=== PATIENT | male | born 2000 ===

== ENCOUNTER 2024-10-30 13:50 | Inpatient (IN) | payer OTHER, SELFPAY ==
--- NOTE | 2024-10-30 14:46 | HO.PM.IMCN ---
History of Present Illness Data of Consult Service Date: 10/30/24 Primary Care Provider: Unknown Physician HPI Reason for consult: Medical H&P 24-year-old male with no significant past medical history or surgical history was brought to [facility] via EMS after his mother called due to suicidal ideation. His CBC, BMP, and UA C&S were all within normal limits. Patient has no medical concerns. On exam he is alert, cooperative, saying a couple of nonsensical answers at times. Denies any shortness of breath, chest pain, dizziness lightheadedness concerning symptoms. Reports that his lower back hurts for about 2 days after he played some basketball. Denies any numbness or tingling, paresthesias or difficulty with his bowel and bladder. Gait is steady. Review of Systems Review of Systems: Denies any shortness of breath, chest pain, dizziness, lightheadedness, abdominal pain or discomfort, nausea vomiting or diarrhea PMFSH Social History Advance Directives: No Advance Directives Information Provided: Yes Advance Directives on File: No Meds Allergies Allergy/AdvReac Type Severity Reaction Status Date / Time No Known Allergies Allergy Verified 10/30/24 14:01 Active Medications: Current Medications Acetaminophen (Acetaminophen 325 Mg Tablet) 650 mg PO Q6H PRN PRN Reason: Headache/Pain, Scale 1-10 Al Hydroxide/Mg Hydroxide (Magnesium Hydrox/Alum Hydrox 30 Ml Oral.Susp) 30 ml PO Q6H PRN PRN Reason: Heartburn/Nausea Hydroxyzine HCl (Hydroxyzine Hcl 25 Mg Tablet) 25 mg PO Q6H PRN PRN Reason: mild anxiety Magnesium Hydroxide (Milk Of Magnesia 30 Ml Oral.Susp) 30 ml PO DAILY PRN PRN Reason: Constipation Nicotine Polacrilex (Nicotine Polacrilex 2 Mg Gum) 4 mg BUCCAL Q2H PRN PRN Reason: Nicotine Cravings Trazodone HCl (Trazodone Hcl 50 Mg Tablet) 50 mg PO BEDTIME MRX1 PRN PRN Reason: Insomnia Physical Exam Vital Signs and Narrative: Alert and oriented X3, able to give good history. Neuro: CN II-X11 intact, no deficits, visual acuity intact EYES: PERRLA, EOM intact ENT: Hearing intact, lips moist Cardiac: S1 S2 RRR, No ectopy Pulmonary: lungs clear to auscultation, No increased WOB. Abdominal: BS active in all 4 quadrants, no guarding or tenderness MSK: Strength 5/5 upper and lower extremities : Deferred Extremities: No edema in lower extremities. Psych: Mood stable, Quiet and cooperative. Skin: Warm and dry, Intact Assessment and Plan (1) Suicidal ideation: Status: Acute Plan Unknown psychosis/suicidal ideation Plan per Psychiatry team Thank you for allowing me to participate in the care of this patient. Signing off at this time. Please reconsult of any acute concerns or issues arise
--- NOTE | 2024-10-30 16:02 | P.HPPS_ITS ---
HPI Date of Service: 10/30/24 Chief Complaint: mental health crisis HPI Narrative: per crisis eval, pt was at home and expressed SI to his mother, then apparently became very disorganized and difficult to understand. she called 911, and he was brought to the ED. once in the ED he denied SI but continued to present as very disorganized. he was medically cleared and referred for psychiatric admission. utox was cannabis POS only. on mental health unit at [facility], pt continues very disorganized. pleasant, able to answer very concrete questions linearly often, but largely tangential responses. agreeable to continue/restart his medications. reports taking wellbutrin, adderall, and seroquel. 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 states he has income from [facility] as well. lives with his mother. Substance History: tobacco - denies cannabis - smokes and uses CBD oil alcohol - denies cocaine - denies opioids - denies benzos - denies stimulants - h/o adderall, ritalin Rx Trauma History: denies Meds/Allergies Allergies Allergies Allergy/AdvReac Type Severity Reaction Status Date / Time No Known Allergies Allergy Verified 10/30/24 14:01 Mental Status Exam Mental Status Exam Narrative: adequately dressed and groomed. cooperative. no PMA/PMR. speech nml rate, incr amount, nml loudness, decr latency. thoughts tangential, for themost part. affect full range, normo-intense, non-labile. mood purple. denies SI/SIBI/HI/AVH. Assessment & Plan Assessment & Plan (1) Psychosis: Status: Acute Code(s): F29 - Unspecified psychosis not due to a substance or known physiological condition Plan hold wellbutrin and adderall. increase seroquel to 150 mg QHS (from 100 mg QHS). Patient educated on: medication risk/benefits and substance abuse Reason for continued inpatient stay Substantial Risk for: harm to self and inability to function Statement Statement: I have reviewed the history and physical and performed a pertinent examination on my patient. No changes have occurred unless specified. If the History and Physical was not performed prior to admission, the Hospitalist's service will be consulted for completing the admission p hysical. Time Spent With Patient Time: Total time managing care of this patient today __55__ minutes.
--- NOTE | 2024-10-30 17:28 | PC.ADMIT ---
Gui Harmon, 24 y/o Prydeinig speaking, was admitted to at 1405 from [facility].? Pt signed CV on admission for bipolar disorder with SI.? Leading up to admission, pt?s mother reported that her son was indulging in SI and ?was not making any sense.?? Pt is alert and oriented x3 and is cooperative and pleasant with staff.? Mood is expansive with a congruent affect.? Pt denies AVH and tactile hallucinations.? Pt thought process and speech is tangential and disorganized. Pt stated midway though admission when asked if he had someone he wanted to talk to if he was restrained pt responded with ?Matteo Felipe does not like having people sweat on him.? Pt is a poor historian, giving nonsensical responses to questions. Pt is appropriate and pleasant when conversing.? PT denies paranoia and delusions.? Pt denies SI/HI.? Pt reports that ?I want to eat less,? but does not appear to affect appetite.? Pt believes he has lost weight, but after being measured he is ?in my usual weight range.? Pt states that he gets enough sleep and has little difficulty with falling asleep. Pt needed to be redirected and needed to have questions repeated.? Pt endorses smoking marijuana frequently and drinking socially while only having a few drinks a month, last date of use unknown. Pt denies taking other substances.? Tox screen came back positive for marijuana.? Pt denies any acute medical issues or physical complaints. Pt is on 15 min safety checks.?
[2024-10-30 17:39] VITALS: BP 120/76; PULSE 56; RESP 16; TEMP 36.6; O2SAT 97
[2024-10-30 17:40] VITALS: BMI 23.1
[2024-10-30 20:00] VITALS: BP 149/73; PULSE 60; RESP 14; TEMP 36.9; O2SAT 99
[2024-10-31 07:41] LABS: MANUAL DIFF FLAG NO
[2024-10-31 07:54] LABS: Hematocrit 50.8 % (42.0-52.0); Hemoglobin 17.6 g/dl (14.0-18.0); Imm Gran Abs Auto 0.03 X10*3/uL (0.00-0.03); Imm Gran Pct Auto 0.5 % (0.0-0.4); Lymphocytes Absolute Auto 2.6 X10*3/uL (1.2-4.9); Mean Corpuscular HGB Conc 34.6 g/dl (31.0-36.0); Mean Corpuscular Hemoglobin 30.4 pg (27.0-33.0); Mean Corpuscular Volume 87.9 fL (80.0-98.0); NRBC Abs Auto 0.000 X10*3/uL (0.0-0.012); NRBC Pct Auto 0.0 /100WBC (0.0-0.2); Platelet Count 277 X10*3/uL (160-400); Red Blood Count 5.78 X10*6/uL (4.60-5.80); White Blood Count 6.1 X10*3/uL (4.8-10.8)
[2024-10-31 07:55] VITALS: BP 115/65; PULSE 45; TEMP 35.7; O2SAT 99
[2024-10-31 07:56] LABS: Hemoglobin A1C 132.6953 umol/L; Total Hemoglobin (HGBA1C) 4493.3237 umol/L
[2024-10-31 08:04] LABS: Alanine Aminotransferase 22 U/L (0-40); Albumin Level 4.8 g/dL (3.5-5.0); Alkaline Phosphatase 94 U/L (39-117); Aspartate Amino Transferase 26 U/L (5-37); Cholesterol 190 mg/dL (<200); HDL Cholesterol 47 mg/dL (>40); Total Protein 7.9 g/dL (6.5-8.0); Triglycerides 61 mg/dL (<150)
[2024-10-31 08:20] LABS: Free T4 (Free Thyroxine) 0.96 ng/dL (0.71-1.85); Thyroid Stimulating Hormone 2.16 uIU/mL (0.32-4.0)
[2024-10-31 08:33] LABS: Folate 11.3 ng/mL (> or = 4.0); Vitamin B12 818 pg/mL (200-900)
--- NOTE | 2024-10-31 16:08 | P.PNPSI_ITS ---
Subjective Subjective Date of Service: 10/31/24 Reason For Visit: mental health crisis Interim History: calm, cooperative, pleasant. disorganized, non-sequiturs. sometimes intelligible. slept OK, mood OK. no questions or complaints. per staff, taking meds, slept 7 hours. no behavioral issues. Mental Status Exam Mental Status Exam Narrative: adequately dressed and groomed. cooperative. no PMA/PMR. speech nml rate, nml amount, nml loudness, decr latency. thoughts tangential or non-sequiturs, for the most part. affect full range, normo-intense, non-labile. mood euthymic. no SI/SIBI/HI/AVH expressed. Diagnostics Vital Signs (24Hr): Vital Signs - 24 hr 10/30/24 17:39 10/30/24 20:00 10/31/24 07:55 Temperature 97.8 F 98.4 F 96.2 F L Pulse Rate 56 60 45 L Respiratory Rate 16 14 Blood Pressure 120/76 149/73 H 115/65 Pulse Oximetry 97 99 99 Oxygen Delivery Method Room Air Room Air Room Air BMI result Body Mass Index 23.1 Labs 10/31/24 07:32 Labs: Laboratory Results - last 48 hr 10/31/24 07:32 WBC 6.1 RBC 5.78 Hgb 17.6 Hct 50.8 MCV 87.9 MCH 30.4 MCHC 34.6 RDW 12.8 Plt Count 277 MPV 8.8 L Immature Gran % (Auto) 0.5 H Neut % (Auto) 42.7 L Lymph % (Auto) 41.9 H [place] % (Auto) 11.9 H Eos % (Auto) 2.0 Baso % (Auto) 1.0 Lymph # (Auto) 2.6 [place] # (Auto) 0.7 Eos # (Auto) 0.1 Baso # (Auto) 0.1 Abs Immat Gran (auto) 0.03 Absolute Neuts (auto) 2.6 Absolute Nucleated RBC 0.000 Nucleated RBC % (auto) 0.0 Estimat Average Glucose 94 Hemoglobin A1c % 4.9 Total Bilirubin 0.8 Direct Bilirubin 0.3 AST 26 ALT 22 Alkaline Phosphatase 94 Total Protein 7.9 Albumin 4.8 Triglycerides 61 Cholesterol 190 LDL Cholesterol, Calc 131 H HDL Cholesterol 47 Vitamin B12 818 Folate 11.3 TSH 2.16 Free T4 0.96 Medications Medications Current Medications Acetaminophen (Acetaminophen 325 Mg Tablet) 650 mg PO Q6H PRN PRN Reason: Headache/Pain, Scale 1-10 Al Hydroxide/Mg Hydroxide (Magnesium Hydrox/Alum Hydrox 30 Ml Oral.Susp) 30 ml PO Q6H PRN PRN Reason: Heartburn/Nausea Hydroxyzine HCl (Hydroxyzine Hcl 25 Mg Tablet) 25 mg PO Q6H PRN PRN Reason: mild anxiety Magnesium Hydroxide (Milk Of Magnesia 30 Ml Oral.Susp) 30 ml PO DAILY PRN PRN Reason: Constipation Nicotine Polacrilex (Nicotine Polacrilex 2 Mg Gum) 4 mg BUCCAL Q2H PRN PRN Reason: Nicotine Cravings Quetiapine Fumarate (Quetiapine Fumarate 50 Mg Tablet) 150 mg PO BEDTIME [facility]I Last Admin: 10/30/24 20:45 Dose: 150 mg Trazodone HCl (Trazodone Hcl 50 Mg Tablet) 50 mg PO BEDTIME MRX1 PRN PRN Reason: Insomnia Allergies Allergies Allergy/AdvReac Type Severity Reaction Status Date / Time No Known Allergies Allergy Verified 10/30/24 14:01 Assessment & Plan Assessment & Plan (1) Psychosis: Status: Acute Code(s): F29 - Unspecified psychosis not due to a substance or known physiological condition Plan 10/30: hold wellbutrin and adderall. increase seroquel to 150 mg QHS (from 100 mg QHS). 10/31: as for yesterday. slept well overnight. T/C adding mood stabilizer if pt does not improve soon. Reason for continued inpatient stay Substantial Risk for: harm to self and inability to function Time Spent With Patient Time: Total time managing care of this patient today ____ minutes.
[2024-10-31 19:25] VITALS: BP 128/78; PULSE 59; RESP 16; TEMP 36.3; O2SAT 98
[2024-11-01 08:00] VITALS: BP 123/67; PULSE 50; RESP 14; TEMP 36.6; O2SAT 99
--- NOTE | 2024-11-01 14:25 | HO.PSYCHPN ---
Subjective Subjective Date of Service: 11/01/24 Reason For Visit: mental health crisis Interim History: calm, cooperative. still disorganized and vague/bizarre in attempting to express himself. states medications working fine. seems to decline to consider mood stabilizer/bipolar Dx. per staff, denies Sx. visible, eating, disorganized. slept 8-brandan hours. Mental Status Exam Mental Status Exam Narrative: adequately dressed and groomed. cooperative. no PMA/PMR. speech nml rate, nml amount, nml loudness, decr latency. thoughts tangential or non-sequiturs, for the most part. affect full range, normo-intense, non-labile. mood euthymic. no SI/SIBI/HI/AVH expressed. Diagnostics Vital Signs (24Hr): Vital Signs - 24 hr 10/31/24 19:25 11/01/24 08:00 Temperature 97.4 F 97.9 F Pulse Rate 59 50 Respiratory Rate 16 14 Blood Pressure 128/78 123/67 Pulse Oximetry 98 99 Oxygen Delivery Method Room Air Room Air BMI result Body Mass Index 23.1 Labs 10/31/24 07:32 Labs: Laboratory Results - last 48 hr 10/31/24 07:32 WBC 6.1 RBC 5.78 Hgb 17.6 Hct 50.8 MCV 87.9 MCH 30.4 MCHC 34.6 RDW 12.8 Plt Count 277 MPV 8.8 L Immature Gran % (Auto) 0.5 H Neut % (Auto) 42.7 L Lymph % (Auto) 41.9 H [place] % (Auto) 11.9 H Eos % (Auto) 2.0 Baso % (Auto) 1.0 Lymph # (Auto) 2.6 [place] # (Auto) 0.7 Eos # (Auto) 0.1 Baso # (Auto) 0.1 Abs Immat Gran (auto) 0.03 Absolute Neuts (auto) 2.6 Absolute Nucleated RBC 0.000 Nucleated RBC % (auto) 0.0 Estimat Average Glucose 94 Hemoglobin A1c % 4.9 Total Bilirubin 0.8 Direct Bilirubin 0.3 AST 26 ALT 22 Alkaline Phosphatase 94 Total Protein 7.9 Albumin 4.8 Triglycerides 61 Cholesterol 190 LDL Cholesterol, Calc 131 H HDL Cholesterol 47 Vitamin B12 818 Folate 11.3 TSH 2.16 Free T4 0.96 Medications Medications Current Medications Acetaminophen (Acetaminophen 325 Mg Tablet) 650 mg PO Q6H PRN PRN Reason: Headache/Pain, Scale 1-10 Al Hydroxide/Mg Hydroxide (Magnesium Hydrox/Alum Hydrox 30 Ml Oral.Susp) 30 ml PO Q6H PRN PRN Reason: Heartburn/Nausea Hydroxyzine HCl (Hydroxyzine Hcl 25 Mg Tablet) 25 mg PO Q6H PRN PRN Reason: mild anxiety Magnesium Hydroxide (Milk Of Magnesia 30 Ml Oral.Susp) 30 ml PO DAILY PRN PRN Reason: Constipation Nicotine Polacrilex (Nicotine Polacrilex 2 Mg Gum) 4 mg BUCCAL Q2H PRN PRN Reason: Nicotine Cravings Quetiapine Fumarate (Quetiapine Fumarate 50 Mg Tablet) 150 mg PO BEDTIME [facility]I Last Admin: 10/31/24 20:36 Dose: 150 mg Trazodone HCl (Trazodone Hcl 50 Mg Tablet) 50 mg PO BEDTIME MRX1 PRN PRN Reason: Insomnia Allergies Allergies Allergy/AdvReac Type Severity Reaction Status Date / Time No Known Allergies Allergy Verified 10/30/24 14:01 Assessment & Plan Assessment & Plan (1) Psychosis: Status: Acute Code(s): F29 - Unspecified psychosis not due to a substance or known physiological condition Plan 10/30: hold wellbutrin and adderall. increase seroquel to 150 mg QHS (from 100 mg QHS). 10/31: as for yesterday. slept well overnight. T/C adding mood stabilizer if pt does not improve soon. 11/01: no change in presentation. declining to consider mood stabilizer. Reason for continued inpatient stay Substantial Risk for: inability to function Time Spent With Patient Time: Total time managing care of this patient today ____ minutes.
[2024-11-01 19:07] VITALS: BP 134/76; PULSE 68; RESP 18; TEMP 36.3; O2SAT 98
[2024-11-02 08:00] VITALS: BP 110/57; PULSE 55; RESP 14; TEMP 36.9; O2SAT 98
--- NOTE | 2024-11-02 14:50 | P.PNPSI_ITS ---
Subjective Subjective Date of Service: 11/02/24 Reason For Visit: mental health crisis Interim History: calm. more organized, but not well. declines new or more medication. MD insists on offering. per staff, taking meals. disorganized, delusional. pleasant, self-dialoguing. slept 8 hours. Mental Status Exam Mental Status Exam Narrative: adequately dressed and groomed. cooperative. no PMA/PMR. speech nml rate, nml amount, nml loudness, decr latency. thoughts disorganized, tangential or non- sequiturs, more than 50% of the time. affect full range, normo-intense, non- labile. mood euthymic. no SI/SIBI/HI/AVH expressed. Diagnostics Vital Signs (24Hr): Vital Signs - 24 hr 11/01/24 19:07 11/02/24 08:00 Temperature 97.4 F 98.4 F Pulse Rate 68 55 Respiratory Rate 18 14 Blood Pressure 134/76 110/57 L Pulse Oximetry 98 98 Oxygen Delivery Method Room Air Room Air BMI result Body Mass Index 23.1 Labs 10/31/24 07:32 Medications Medications Current Medications Acetaminophen (Acetaminophen 325 Mg Tablet) 650 mg PO Q6H PRN PRN Reason: Headache/Pain, Scale 1-10 Al Hydroxide/Mg Hydroxide (Magnesium Hydrox/Alum Hydrox 30 Ml Oral.Susp) 30 ml PO Q6H PRN PRN Reason: Heartburn/Nausea Hydroxyzine HCl (Hydroxyzine Hcl 25 Mg Tablet) 25 mg PO Q6H PRN PRN Reason: mild anxiety [place] Carbonate ([place] Carbonate Er 450 Mg Tablet.Er) 450 mg PO BID [facility] Magnesium Hydroxide (Milk Of Magnesia 30 Ml Oral.Susp) 30 ml PO DAILY PRN PRN Reason: Constipation Nicotine Polacrilex (Nicotine Polacrilex 2 Mg Gum) 4 mg BUCCAL Q2H PRN PRN Reason: Nicotine Cravings Quetiapine Fumarate (Quetiapine Fumarate 50 Mg Tablet) 150 mg PO BEDTIME [facility] Last Admin: 11/01/24 22:30 Dose: 150 mg Trazodone HCl (Trazodone Hcl 50 Mg Tablet) 50 mg PO BEDTIME MRX1 PRN PRN Reason: Insomnia Allergies Allergies Allergy/AdvReac Type Severity Reaction Status Date / Time No Known Allergies Allergy Verified 10/30/24 14:01 Assessment & Plan Assessment & Plan (1) Psychosis: Status: Acute Code(s): F29 - Unspecified psychosis not due to a substance or known physiological condition Plan 10/30: hold wellbutrin and adderall. increase seroquel to 150 mg QHS (from 100 mg QHS). 10/31: as for yesterday. slept well overnight. T/C adding mood stabilizer if pt does not improve soon. 11/01: no change in presentation. declining to consider mood stabilizer. 11/02: slight improvement in [facility] organization. pt declining change in mgmt, but offer lithium 450 BID. Reason for continued inpatient stay Substantial Risk for: harm to self and inability to function Time Spent With Patient Time: Total time managing care of this patient today ____ minutes.
[2024-11-02 20:00] VITALS: BP 131/73; PULSE 73; RESP 16; TEMP 36.5; O2SAT 97
--- NOTE | 2024-11-03 13:09 | P.PNPSI_ITS ---
Subjective Subjective Date of Service: 11/03/24 Reason For Visit: mental health crisis Interim History: slightly more cogent today. per staff, started lithium last NOC. labile, irritable. slept 7 hours. Mental Status Exam Mental Status Exam Narrative: adequately dressed and groomed. cooperative. no PMA/PMR. speech nml rate, nml amount, nml loudness, decr latency. thoughts disorganized, tangential or non- sequiturs, 50% of the time. affect full range, normo-intense, non-labile. mood euthymic. no SI/SIBI/HI/AVH expressed. Diagnostics Vital Signs (24Hr): Vital Signs - 24 hr 11/02/24 20:00 Temperature 97.7 F Pulse Rate 73 Respiratory Rate 16 Blood Pressure 131/73 Pulse Oximetry 97 Oxygen Delivery Method Room Air BMI result Body Mass Index 23.1 Labs 10/31/24 07:32 Medications Medications Current Medications Acetaminophen (Acetaminophen 325 Mg Tablet) 650 mg PO Q6H PRN PRN Reason: Headache/Pain, Scale 1-10 Al Hydroxide/Mg Hydroxide (Magnesium Hydrox/Alum Hydrox 30 Ml Oral.Susp) 30 ml PO Q6H PRN PRN Reason: Heartburn/Nausea Hydroxyzine HCl (Hydroxyzine Hcl 25 Mg Tablet) 25 mg PO Q6H PRN PRN Reason: mild anxiety [place] Carbonate ([place] Carbonate Er 450 Mg Tablet.Er) 450 mg PO BID COUNT INCLUDES [facility] Last Admin: 11/03/24 08:36 Dose: 450 mg Magnesium Hydroxide (Milk Of Magnesia 30 Ml Oral.Susp) 30 ml PO DAILY PRN PRN Reason: Constipation Nicotine Polacrilex (Nicotine Polacrilex 2 Mg Gum) 4 mg BUCCAL Q2H PRN PRN Reason: Nicotine Cravings Quetiapine Fumarate (Quetiapine Fumarate 50 Mg Tablet) 150 mg PO BEDTIME [facility] Last Admin: 11/02/24 21:06 Dose: 150 mg Trazodone HCl (Trazodone Hcl 50 Mg Tablet) 50 mg PO BEDTIME MRX1 PRN PRN Reason: Insomnia Last Admin: 11/02/24 22:58 Dose: 50 mg Allergies Allergies Allergy/AdvReac Type Severity Reaction Status Date / Time No Known Allergies Allergy Verified 10/30/24 14:01 Assessment & Plan Assessment & Plan (1) Psychosis: Status: Acute Code(s): F29 - Unspecified psychosis not due to a substance or known physiological condition Plan 10/30: hold wellbutrin and adderall. increase seroquel to 150 mg QHS (from 100 mg QHS). 10/31: as for yesterday. slept well overnight. T/C adding mood stabilizer if pt does not improve soon. 11/01: no change in presentation. declining to consider mood stabilizer. 11/02: slight improvement in [facility] organization. pt declining change in mgmt, but offer lithium 450 BID. 11/03: slightly more cogent and germane today. spoke with pt's mother re case; she feels adderall and seroquel worked well for him, when he was taking them. continue current mgmt. Reason for continued inpatient stay Substantial Risk for: harm to self and inability to function Time Spent With Patient Time: Total time managing care of this patient today __35__ minutes.
[2024-11-03 20:00] VITALS: BP 126/60; PULSE 63; RESP 16; TEMP 36.1; O2SAT 99
[2024-11-04 07:35] VITALS: BP 120/61; PULSE 56; RESP 14; TEMP 36.2; O2SAT 99
--- NOTE | 2024-11-04 15:08 | P.PNPSI_ITS ---
Subjective Subjective Date of Service: 11/04/24 Reason For Visit: mental health crisis Interim History: brief but linear responses to staff air tactical officer on their attempted interview. pt c/o feeling tired. declined interview with this senior underwriter for that reason. per staff, +dep/anx. denies AVH. +RIS. +ADLs. eating well. pacing, mumbling. c/o AH eves. just chillin. slept 8 hours. Mental Status Exam Mental Status Exam Narrative: adequately dressed and groomed. cooperative. no PMA/PMR. speech nml rate, decr amount, nml loudness, nml latency. thoughts linear today, but very little content. affect constricted, normo-intense, non-labile. mood not assessed. no SI/SIBI/HI/AVH expressed. Diagnostics Vital Signs (24Hr): Vital Signs - 24 hr 11/03/24 20:00 11/04/24 07:35 Temperature 97.0 F 97.2 F Pulse Rate 63 56 Respiratory Rate 16 14 Blood Pressure 126/60 120/61 Pulse Oximetry 99 99 Oxygen Delivery Method Room Air Room Air BMI result Body Mass Index 23.1 Labs 10/31/24 07:32 Medications Medications Current Medications Acetaminophen (Acetaminophen 325 Mg Tablet) 650 mg PO Q6H PRN PRN Reason: Headache/Pain, Scale 1-10 Al Hydroxide/Mg Hydroxide (Magnesium Hydrox/Alum Hydrox 30 Ml Oral.Susp) 30 ml PO Q6H PRN PRN Reason: Heartburn/Nausea Hydroxyzine HCl (Hydroxyzine Hcl 25 Mg Tablet) 25 mg PO Q6H PRN PRN Reason: mild anxiety [place] Carbonate ([place] Carbonate Er 450 Mg Tablet.Er) 450 mg PO BID [facility] Last Admin: 11/04/24 08:39 Dose: 450 mg Magnesium Hydroxide (Milk Of Magnesia 30 Ml Oral.Susp) 30 ml PO DAILY PRN PRN Reason: Constipation Nicotine Polacrilex (Nicotine Polacrilex 2 Mg Gum) 4 mg BUCCAL Q2H PRN PRN Reason: Nicotine Cravings Quetiapine Fumarate (Quetiapine Fumarate 50 Mg Tablet) 150 mg PO BEDTIME [facility] Last Admin: 11/03/24 21:23 Dose: 150 mg Trazodone HCl (Trazodone Hcl 50 Mg Tablet) 50 mg PO BEDTIME MRX1 PRN PRN Reason: Insomnia Last Admin: 11/02/24 22:58 Dose: 50 mg Allergies Allergies Allergy/AdvReac Type Severity Reaction Status Date / Time No Known Allergies Allergy Verified 10/30/24 14:01 Assessment & Plan Assessment & Plan (1) Psychosis: Status: Acute Code(s): F29 - Unspecified psychosis not due to a substance or known physiological condition Plan 10/30: hold wellbutrin and adderall. increase seroquel to 150 mg QHS (from 100 mg QHS). 10/31: as for yesterday. slept well overnight. T/C adding mood stabilizer if pt does not improve soon. 11/01: no change in presentation. declining to consider mood stabilizer. 11/02: [facility] pt declining change in mgmt, but offer lithium 450 BID. 11/03: slightly more cogent and germane today. spoke with pt's mother re case; she feels adderall and seroquel worked well for him, when he was taking them. continue current mgmt. 11/04: answers brief but linear in limited observation. declined interview with MD, citing feeling tired. increase lithium to 600 BID. Reason for continued inpatient stay Substantial Risk for: harm to self and inability to function Time Spent With Patient Time: Total time managing care of this patient today ____ minutes.
[2024-11-04 20:00] VITALS: BP 132/87; PULSE 65; RESP 16; TEMP 36; O2SAT 97
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
--- NOTE | 2024-11-05 09:20 | HO.PSYCHPN ---
Subjective Subjective Date of Service: 11/05/24 Reason For Visit: mental health crisis Subjective Notes: Conditional Voluntary Medical Problems Affecting Mental Status: No Interim History: Patient notes that he is feeling ?great. He notes that he is missing his family and to be with them. He also want to return home and resume work. He denies anxiety or depression. He denies SI/HI/AH/VH. Medication Compliance: Yes Side effects from medications: No Attending Groups: Intermittent Review of Systems Acute medical concerns: No Mental Status Exam Mental Status Exam Narrative: Appearance: Casually dressed, adequate hygiene Behavior: Calm and cooperative throughout the interview. Eye contact is appropriate, and there are no signs of psychomotor agitation or retardation Speech: Normal volume and prosody Thought process: logical and goal-directed Thought content: Future oriented no self-harming thoughts Mood: Great Affect: Full, mood-congruent SI:denies HI:denies VH/AH:none Delusions: None Insight/judgment: Fair insight and judgment Memory/cog: Alert, oriented x 4. grossly intact to conversational testing Diagnostics Vital Signs (24Hr): Vital Signs - 24 hr 11/04/24 20:00 Temperature 96.8 F Pulse Rate 65 Respiratory Rate 16 Blood Pressure 132/87 Pulse Oximetry 97 Oxygen Delivery Method Room Air BMI result Body Mass Index 23.1 Labs 10/31/24 07:32 Medications Medications Current Medications Acetaminophen (Acetaminophen 325 Mg Tablet) 650 mg PO Q6H PRN PRN Reason: Headache/Pain, Scale 1-10 Al Hydroxide/Mg Hydroxide (Magnesium Hydrox/Alum Hydrox 30 Ml Oral.Susp) 30 ml PO Q6H PRN PRN Reason: Heartburn/Nausea Hydroxyzine HCl (Hydroxyzine Hcl 25 Mg Tablet) 25 mg PO Q6H PRN PRN Reason: mild anxiety [place] Carbonate ([place] Carbonate Er 300 Mg Tablet.Er) 600 mg PO BID [facility] Last Admin: 11/05/24 08:33 Dose: 600 mg Magnesium Hydroxide (Milk Of Magnesia 30 Ml Oral.Susp) 30 ml PO DAILY PRN PRN Reason: Constipation Nicotine Polacrilex (Nicotine Polacrilex 2 Mg Gum) 4 mg BUCCAL Q2H PRN PRN Reason: Nicotine Cravings Quetiapine Fumarate (Quetiapine Fumarate 50 Mg Tablet) 150 mg PO BEDTIME [facility] Last Admin: 11/04/24 22:22 Dose: 50 mg Trazodone HCl (Trazodone Hcl 50 Mg Tablet) 50 mg PO BEDTIME MRX1 PRN PRN Reason: Insomnia Last Admin: 11/02/24 22:58 Dose: 50 mg Allergies Allergies Allergy/AdvReac Type Severity Reaction Status Date / Time No Known Allergies Allergy Verified 10/30/24 14:01 Assessment & Plan Assessment & Plan (1) Psychosis: Status: Acute Code(s): F29 - Unspecified psychosis not due to a substance or known physiological condition Plan 10/30: hold wellbutrin and adderall. increase seroquel to 150 mg QHS (from 100 mg QHS). 10/31: as for yesterday. slept well overnight. T/C adding mood stabilizer if pt does not improve soon. 11/01: no change in presentation. declining to consider mood stabilizer. 11/02: slight improvement in [facility]. pt declining change in mgmt, but offer lithium 450 BID. 11/03: slightly more cogent and germane today. spoke with pt's mother re case; she feels adderall and seroquel worked well for him, when he was taking them. continue current mgmt. 11/04: answers brief but linear in limited observation. declined interview with MD, citing feeling tired. increase lithium to 600 BID. 11/05: Patient notes that he is feeling ?great. He notes that he is missing his family and to be with them. He also want to return home and resume work. He denies anxiety or depression. He denies SI/HI/AH/VH. Continue current treatment regimen. Patient educated on: therapeutic strategies Reason for continued inpatient stay Substantial Risk for: rapid decompensation Time Spent With Patient Time: Total time managing care of this patient today ____ minutes.
[2024-11-05 20:00] VITALS: BP 141/73; PULSE 65; RESP 16; TEMP 37.1; O2SAT 98
[2024-11-06 07:00] VITALS: BMI 24.0
[2024-11-06 08:00] VITALS: RESP 18
--- NOTE | 2024-11-06 17:01 | HO.PSYCHPN ---
Subjective Subjective Date of Service: 11/06/24 Reason For Visit: mental health crisis Interim History: feels lithium keeps my demeanor not chaotic. sleeping well. linear and reasonably logical today. per staff, taking meds. flat, withdrawn. +RIS. pacing, laughing. denies Sx. thought-disordered. sleeping well. Mental Status Exam Mental Status Exam Narrative: adequately dressed and groomed. cooperative. no PMA/PMR. speech nml rate, amount, loudness; decr latency. thoughts linear and reasonably logical. affect flexible, normo-intense, non-labile. mood less euphoric. no SI/SIBI/HI/AVH expressed. per staff, +RIS. Diagnostics Vital Signs (24Hr): Vital Signs - 24 hr 11/05/24 20:00 11/06/24 08:00 Temperature 98.8 F Pulse Rate 65 Respiratory Rate 16 18 Blood Pressure 141/73 H Pulse Oximetry 98 Oxygen Delivery Method Room Air BMI result Body Mass Index 24.0 Labs 10/31/24 07:32 Medications Medications Current Medications Acetaminophen (Acetaminophen 325 Mg Tablet) 650 mg PO Q6H PRN PRN Reason: Headache/Pain, Scale 1-10 Al Hydroxide/Mg Hydroxide (Magnesium Hydrox/Alum Hydrox 30 Ml Oral.Susp) 30 ml PO Q6H PRN PRN Reason: Heartburn/Nausea Hydroxyzine HCl (Hydroxyzine Hcl 25 Mg Tablet) 25 mg PO Q6H PRN PRN Reason: mild anxiety [place] Carbonate ([place] Carbonate Er 300 Mg Tablet.Er) 600 mg PO BID [facility] Last Admin: 11/06/24 08:41 Dose: 600 mg Magnesium Hydroxide (Milk Of Magnesia 30 Ml Oral.Susp) 30 ml PO DAILY PRN PRN Reason: Constipation Nicotine Polacrilex (Nicotine Polacrilex 2 Mg Gum) 4 mg BUCCAL Q2H PRN PRN Reason: Nicotine Cravings Quetiapine Fumarate (Quetiapine Fumarate 50 Mg Tablet) 150 mg PO BEDTIME [facility] Last Admin: 11/05/24 20:44 Dose: 150 mg Trazodone HCl (Trazodone Hcl 50 Mg Tablet) 50 mg PO BEDTIME MRX1 PRN PRN Reason: Insomnia Last Admin: 11/02/24 22:58 Dose: 50 mg Allergies Allergies Allergy/AdvReac Type Severity Reaction Status Date / Time No Known Allergies Allergy Verified 10/30/24 14:01 Assessment & Plan Assessment & Plan (1) Psychosis: Status: Acute Code(s): F29 - Unspecified psychosis not due to a substance or known physiological condition Plan 10/30: hold wellbutrin and adderall. increase seroquel to 150 mg QHS (from 100 mg QHS). 10/31: as for yesterday. slept well overnight. T/C adding mood stabilizer if pt does not improve soon. 11/01: no change in presentation. declining to consider mood stabilizer. 11/02: slight improvement in [facility] organization. pt declining change in mgmt, but offer lithium 450 BID. 11/03: slightly more cogent and germane today. spoke with pt's mother re case; she feels adderall and seroquel worked well for him, when he was taking them. continue current mgmt. 11/04: answers brief but linear in limited observation. declined interview with MD, citing feeling tired. increase lithium to 600 BID. 11/05: Patient notes that he is feeling ?great. He notes that he is missing his family and to be with them. He also want to return home and resume work. He denies anxiety or depression. He denies SI/HI/AH/VH. Continue current treatment regimen. 11/06: linear, able to communicate reasonably well and be understood. feels lithium keeps my demeanor not chaotic. sleeping well. continue current mgmt. Reason for continued inpatient stay Substantial Risk for: harm to self, inability to function and rapid decompensation Time Spent With Patient Time: Total time managing care of this patient today __25__ minutes.
[2024-11-06 19:55] VITALS: BP 124/73; PULSE 62; RESP 16; TEMP 37.1; O2SAT 99
[2024-11-07 07:25] VITALS: BP 92/55; PULSE 51; RESP 14; TEMP 37; O2SAT 98
--- NOTE | 2024-11-07 11:18 | P.PNPSI_ITS ---
Subjective Subjective Date of Service: 11/07/24 Reason For Visit: mental health crisis Interim History: in bed, tired, rousable. denies any problems, states he is extra sleepy this morning and just wants to go back to sleep. per staff denies dep/anx. taking meds. variable affect. slept 8 hours. Mental Status Exam Mental Status Exam Narrative: adequately dressed and groomed. cooperative. no PMA/PMR. speech nml rate, amount, loudness; decr latency. thoughts linear and logical. affect constricted, normo-intense, non-labile. mood not euphoric. no SI/SIBI/HI/AVH expressed. Diagnostics Vital Signs (24Hr): Vital Signs - 24 hr 11/06/24 19:55 11/07/24 07:25 Temperature 98.8 F 98.6 F Pulse Rate 62 51 Respiratory Rate 16 14 Blood Pressure 124/73 92/55 L Pulse Oximetry 99 98 Oxygen Delivery Method Room Air Room Air BMI result Body Mass Index 24.0 Labs 10/31/24 07:32 Medications Medications Current Medications Acetaminophen (Acetaminophen 325 Mg Tablet) 650 mg PO Q6H PRN PRN Reason: Headache/Pain, Scale 1-10 Al Hydroxide/Mg Hydroxide (Magnesium Hydrox/Alum Hydrox 30 Ml Oral.Susp) 30 ml PO Q6H PRN PRN Reason: Heartburn/Nausea Hydroxyzine HCl (Hydroxyzine Hcl 25 Mg Tablet) 25 mg PO Q6H PRN PRN Reason: mild anxiety [place] Carbonate ([place] Carbonate Er 300 Mg Tablet.Er) 600 mg PO BID [facility] Last Admin: 11/07/24 08:43 Dose: 600 mg Magnesium Hydroxide (Milk Of Magnesia 30 Ml Oral.Susp) 30 ml PO DAILY PRN PRN Reason: Constipation Nicotine Polacrilex (Nicotine Polacrilex 2 Mg Gum) 4 mg BUCCAL Q2H PRN PRN Reason: Nicotine Cravings Quetiapine Fumarate (Quetiapine Fumarate 50 Mg Tablet) 150 mg PO BEDTIME [facility] Last Admin: 11/06/24 21:23 Dose: 150 mg Trazodone HCl (Trazodone Hcl 50 Mg Tablet) 50 mg PO BEDTIME MRX1 PRN PRN Reason: Insomnia Last Admin: 11/06/24 21:23 Dose: 50 mg Allergies Allergies Allergy/AdvReac Type Severity Reaction Status Date / Time No Known Allergies Allergy Verified 10/30/24 14:01 Assessment & Plan Assessment & Plan (1) Psychosis: Status: Acute Code(s): F29 - Unspecified psychosis not due to a substance or known physiological condition Plan 10/30: hold wellbutrin and adderall. increase seroquel to 150 mg QHS (from 100 mg QHS). 10/31: as for yesterday. slept well overnight. T/C adding mood stabilizer if pt does not improve soon. 11/01: no change in presentation. declining to consider mood stabilizer. 11/02: slight improvement in [facility]. pt declining change in mgmt, but offer lithium 450 BID. 11/03: slightly more cogent and germane today. spoke with pt's mother re case; she feels adderall and seroquel worked well for him, when he was taking them. continue current mgmt. 11/04: answers brief but linear in limited observation. declined interview with MD, citing feeling tired. increase lithium to 600 BID. 11/05: Patient notes that he is feeling ?great. He notes that he is missing his family and to be with them. He also want to return home and resume work. He denies anxiety or depression. He denies SI/HI/AH/VH. Continue current treatment regimen. 11/06: linear, able to communicate reasonably well and be understood. feels lithium keeps my demeanor not chaotic. sleeping well. continue current mgmt. 11/07: remains improved, linear, non-bizarre in responses. continue current mgmt. check lithium level and associated labs sunday (ordered). Reason for continued inpatient stay Substantial Risk for: harm to self, inability to function and rapid decompensation Time Spent With Patient Time: Total time managing care of this patient today ____ minutes.
[2024-11-08 20:00] VITALS: BP 117/60; PULSE 67; RESP 16; TEMP 37; O2SAT 97
--- NOTE | 2024-11-08 22:45 | P.PNPSI_ITS ---
Subjective Subjective Date of Service: 11/08/24 Reason For Visit: mental health crisis Subjective Notes: Conditional Voluntary Healthcare Proxy: No Guardianship: No Medical Problems Affecting Mental Status: No Interim History: Medical record and nursing notes reviewed; case discussed during rounds with team/nursing staff, and met with patient for supportive therapy/psychoeducation, as well as medication management. Per chart review, patient slept well, no appetite issues, was medication compliant. Denies side effects. Denies hallucinations. Denies other safety concerns, visible at times in common area. No behavior issues Medication Compliance: Yes Side effects from medications: No Attending Groups: Intermittent Review of Systems Acute medical concerns: No Medical Review of Systems: unchanged Review of Systems Review of Systems Denies any shortness of breath, chest pain, dizziness, lightheadedness, abdominal pain or discomfort, nausea vomiting or diarrhea Yes all other systems are reviewed and are negative Mental Status Exam Mental Status Exam Narrative: adequately dressed and groomed. cooperative. no PMA/PMR. speech nml rate, amount, loudness; decr latency. thoughts linear and logical. affect constricted, normo-intense, non-labile. mood not euphoric. denies SI/SIB//HI/AVH. Diagnostics Vital Signs (24Hr): Vital Signs - 24 hr 11/08/24 20:00 Temperature 98.6 F Pulse Rate 67 Respiratory Rate 16 Blood Pressure 117/60 Pulse Oximetry 97 Oxygen Delivery Method Room Air BMI result Body Mass Index 24.0 Labs 10/31/24 07:32 Medications Medications Current Medications Acetaminophen (Acetaminophen 325 Mg Tablet) 650 mg PO Q6H PRN PRN Reason: Headache/Pain, Scale 1-10 Al Hydroxide/Mg Hydroxide (Magnesium Hydrox/Alum Hydrox 30 Ml Oral.Susp) 30 ml PO Q6H PRN PRN Reason: Heartburn/Nausea Hydroxyzine HCl (Hydroxyzine Hcl 25 Mg Tablet) 25 mg PO Q6H PRN PRN Reason: mild anxiety [place] Carbonate ([place] Carbonate Er 300 Mg Tablet.Er) 600 mg PO BID [facility] Last Admin: 11/08/24 22:15 Dose: 600 mg Magnesium Hydroxide (Milk Of Magnesia 30 Ml Oral.Susp) 30 ml PO DAILY PRN PRN Reason: Constipation Nicotine Polacrilex (Nicotine Polacrilex 2 Mg Gum) 4 mg BUCCAL Q2H PRN PRN Reason: Nicotine Cravings Quetiapine Fumarate (Quetiapine Fumarate 50 Mg Tablet) 150 mg PO BEDTIME [facility] Last Admin: 11/08/24 22:15 Dose: 150 mg Trazodone HCl (Trazodone Hcl 50 Mg Tablet) 50 mg PO BEDTIME MRX1 PRN PRN Reason: Insomnia Last Admin: 11/08/24 22:15 Dose: 50 mg Allergies Allergies Allergy/AdvReac Type Severity Reaction Status Date / Time No Known Allergies Allergy Verified 10/30/24 14:01 Assessment & Plan Assessment & Plan (1) Psychosis: Status: Acute Code(s): F29 - Unspecified psychosis not due to a substance or known physiological condition Plan 10/30: hold wellbutrin and adderall. increase seroquel to 150 mg QHS (from 100 mg QHS). 10/31: as for yesterday. slept well overnight. T/C adding mood stabilizer if pt does not improve soon. 11/01: no change in presentation. declining to consider mood stabilizer. 11/02: slight improvement in [facility] organization. pt declining change in mgmt, but offer lithium 450 BID. 11/03: slightly more cogent and germane today. spoke with pt's mother re case; she feels adderall and seroquel worked well for him, when he was taking them. continue current mgmt. 11/04: answers brief but linear in limited observation. declined interview with MD, citing feeling tired. increase lithium to 600 BID. 11/05: Patient notes that he is feeling ?great. He notes that he is missing his family and to be with them. He also want to return home and resume work. He denies anxiety or depression. He denies SI/HI/AH/VH. Continue current treatment regimen. 11/06: linear, able to communicate reasonably well and be understood. feels lithium keeps my demeanor not chaotic. sleeping well. continue current mgmt. 11/07: remains improved, linear, non-bizarre in responses. continue current mgmt. check lithium level and associated labs sunday (ordered). 11/08/24: Continue to improve in mood, no safety concerns. No behavior issues. Denies side effects and was medication compliant. No issue with sleep and appetite Patient educated on: medication risk/benefits and therapeutic strategies Informed Consent: understands Reason for continued inpatient stay Substantial Risk for: med/psych decompensation Time Spent With Patient Time: Total time managing care of this patient today ____ minutes.
--- NOTE | 2024-11-09 13:14 | HO.PSYCHPN ---
Subjective Subjective Date of Service: 11/09/24 Reason For Visit: mental health crisis Subjective Notes: Conditional Voluntary Healthcare Proxy: No Guardianship: No Medical Problems Affecting Mental Status: No Interim History: Medical record and nursing notes reviewed; case discussed during rounds with team/nursing staff, and met with patient for supportive therapy/psychoeducation, as well as medication management. Patient slept 7 hours, was medication compliant. Denies side effects. Continued to improve. No behavior issues. No safety concerns. He expect to be discharged on Sunday. Visible at times and attended to groups, Medication Compliance: Yes Side effects from medications: No Attending Groups: Intermittent Review of Systems Acute medical concerns: No Medical Review of Systems: unchanged Review of Systems Review of Systems Denies any shortness of breath, chest pain, dizziness, lightheadedness, abdominal pain or discomfort, nausea vomiting or diarrhea Yes all other systems are reviewed and are negative Mental Status Exam Mental Status Exam Narrative: adequately dressed and groomed. cooperative. no PMA/PMR. speech nml rate, amount, loudness; decr latency. thoughts linear and logical. affect constricted, normo-intense, non-labile. mood not euphoric. denies SI/SIB//HI/AVH. Diagnostics Vital Signs (24Hr): Vital Signs - 24 hr 11/08/24 20:00 Temperature 98.6 F Pulse Rate 67 Respiratory Rate 16 Blood Pressure 117/60 Pulse Oximetry 97 Oxygen Delivery Method Room Air BMI result Body Mass Index 24.0 Labs 10/31/24 07:32 Medications Medications Current Medications Acetaminophen (Acetaminophen 325 Mg Tablet) 650 mg PO Q6H PRN PRN Reason: Headache/Pain, Scale 1-10 Al Hydroxide/Mg Hydroxide (Magnesium Hydrox/Alum Hydrox 30 Ml Oral.Susp) 30 ml PO Q6H PRN PRN Reason: Heartburn/Nausea Hydroxyzine HCl (Hydroxyzine Hcl 25 Mg Tablet) 25 mg PO Q6H PRN PRN Reason: mild anxiety [place] Carbonate ([place] Carbonate Er 300 Mg Tablet.Er) 600 mg PO BID [facility] Last Admin: 11/09/24 08:29 Dose: 600 mg Magnesium Hydroxide (Milk Of Magnesia 30 Ml Oral.Susp) 30 ml PO DAILY PRN PRN Reason: Constipation Nicotine Polacrilex (Nicotine Polacrilex 2 Mg Gum) 4 mg BUCCAL Q2H PRN PRN Reason: Nicotine Cravings Quetiapine Fumarate (Quetiapine Fumarate 50 Mg Tablet) 150 mg PO BEDTIME [facility] Last Admin: 11/08/24 22:15 Dose: 150 mg Trazodone HCl (Trazodone Hcl 50 Mg Tablet) 50 mg PO BEDTIME MRX1 PRN PRN Reason: Insomnia Last Admin: 11/08/24 22:15 Dose: 50 mg Allergies Allergies Allergy/AdvReac Type Severity Reaction Status Date / Time No Known Allergies Allergy Verified 10/30/24 14:01 Assessment & Plan Assessment & Plan (1) Psychosis: Status: Acute Code(s): F29 - Unspecified psychosis not due to a substance or known physiological condition Plan 10/30: hold wellbutrin and adderall. increase seroquel to 150 mg QHS (from 100 mg QHS). 10/31: as for yesterday. slept well overnight. T/C adding mood stabilizer if pt does not improve soon. 11/01: no change in presentation. declining to consider mood stabilizer. 11/02: slight improvement in [facility] organization. pt declining change in mgmt, but offer lithium 450 BID. 11/03: slightly more cogent and germane today. spoke with pt's mother re case; she feels adderall and seroquel worked well for him, when he was taking them. continue current mgmt. 11/04: answers brief but linear in limited observation. declined interview with MD, citing feeling tired. increase lithium to 600 BID. 11/05: Patient notes that he is feeling ?great. He notes that he is missing his family and to be with them. He also want to return home and resume work. He denies anxiety or depression. He denies SI/HI/AH/VH. Continue current treatment regimen. 11/06: linear, able to communicate reasonably well and be understood. feels lithium keeps my demeanor not chaotic. sleeping well. continue current mgmt. 11/07: remains improved, linear, non-bizarre in responses. continue current mgmt. check lithium level and associated labs sunday morning (ordered). 11/08/24: Continue to improve in mood, no safety concerns. No behavior issues. Denies side effects and was medication compliant. No issue with sleep and appetite. 11/09/24: Sleep and appetite are good, compliant with medications with no side effects. No behavior safety concerns. Continued to improve. Visible at times and attended groups. Patient educated on: medication risk/benefits and therapeutic strategies Informed Consent: understands Reason for continued inpatient stay Substantial Risk for: med/psych decompensation Time Spent With Patient Time: Total time managing care of this patient today ____ minutes.
[2024-11-09 19:45] VITALS: BP 126/71; PULSE 58; TEMP 36.9; O2SAT 97
[2024-11-10 07:34] LABS: MANUAL DIFF FLAG NO
[2024-11-10 07:36] LABS: Hematocrit 49.9 % (42.0-52.0); Hemoglobin 16.6 g/dl (14.0-18.0); Imm Gran Abs Auto 0.05 X10*3/uL (0.00-0.03); Imm Gran Pct Auto 0.6 % (0.0-0.4); Lymphocytes Absolute Auto 2.2 X10*3/uL (1.2-4.9); Mean Corpuscular HGB Conc 33.3 g/dl (31.0-36.0); Mean Corpuscular Hemoglobin 30.4 pg (27.0-33.0); Mean Corpuscular Volume 91.4 fL (80.0-98.0); NRBC Abs Auto 0.000 X10*3/uL (0.0-0.012); NRBC Pct Auto 0.0 /100WBC (0.0-0.2); Platelet Count 265 X10*3/uL (160-400); Red Blood Count 5.46 X10*6/uL (4.60-5.80); White Blood Count 8.0 X10*3/uL (4.8-10.8)
[2024-11-10 07:48] LABS: Anion Gap 9 (12-20); Blood Urea Nitrogen 10 mg/dL (9-16); Calcium 9.1 mg/dL (8.4-10.2); Carbon Dioxide 31 mmol/L (22-29); Chloride 106 mmol/L (96-108); Creatinine Clr Calc Pharmacy 110.8; Estimated Glomerular Filt Rate > 60; Lithium 0.68 mmol/L (0.60-1.20); Potassium 4.5 mmol/L (3.3-5.1); Sodium 141 mmol/L (135-145)
[2024-11-10 08:00] VITALS: BP 134/58; PULSE 62; RESP 16; TEMP 36.8; O2SAT 100
--- NOTE | 2024-11-10 16:01 | P.DS_ITS ---
DS: Providers Provider Date of Service: 11/10/24 Date of admission: 10/30/24 13:50 Date of discharge: 11/11/24 Primary care physician: Unknown Physician Consults: 10/30/24 14:07 Consult to Hospitalist Routine Comment: [place] [facility] [place] For Exam: OSH admission DS: Diagnosis Discharge Diagnosis (1) Psychosis: Status: Acute DS: Medications Discharge Medications Home Medications: Previous Rx's ?Medication ?Instructions ?Recorded lithium carbonate 300 mg See Rx Instructions .Route 0 11/10/24 tablet,extended release .COMPLEX 30 days #90 tabs lithium carbonate 450 mg 450 mg PO BEDTIME 30 days #3 0 tabs 11/10/24 tablet,extended release quetiapine 50 mg tablet 150 mg (3 x 50 mg) PO BEDTIM E 30 11/10/24 days #90 tabs Mental Status Exam Mental Status Exam Narrative: adequately dressed and groomed. cooperative. no PMA/PMR. speech nml rate, incr amount, nml loudness, decr latency. thoughts linear and logical. affect constricted, normo-intense, non-labile. mood not euphoric. no SI/SIBI/HI/AVH. Data Data Completed and Pending Completed studies during hospitalization [Text1]: 11/10/24 07:21 WBC 8.0 RBC 5.46 Hgb 16.6 Hct 49.9 MCV 91.4 MCH 30.4 MCHC 33.3 RDW 12.7 Plt Count 265 MPV 8.9 L Immature Gran % (Auto) 0.6 H Neut % (Auto) 61.3 Lymph % (Auto) 27.0 [place] % (Auto) 8.1 Eos % (Auto) 1.9 Baso % (Auto) 1.1 Lymph # (Auto) 2.2 [place] # (Auto) 0.7 Eos # (Auto) 0.2 Baso # (Auto) 0.1 Abs Immat Gran (auto) 0.05 H Absolute Neuts (auto) 4.9 Absolute Nucleated RBC 0.000 Nucleated RBC % (auto) 0.0 Sodium 141 Potassium 4.5 Chloride 106 Carbon Dioxide 31 H Anion Gap 9 L BUN 10 Creatinine 1.07 Estim Creat Clear Calc 110.8 Estimated GFR > 60 Random Glucose 84 Calcium 9.1 [place] 0.68 DS: Summary Hospital Course Hospital Course: per 10/30 admission note: HPI Narrative: per crisis eval, pt was at home and expressed SI to his mother, then apparently became very disorganized and difficult to understand. she called 911, and he was brought to the ED. once in the ED he denied SI but continued to present as very disorganized. he was medically cleared and referred for psychiatric admission. utox was cannabis POS only. [place] [facility] [place] continues very disorganized. pleasant, able to answer very concrete questions linearly often, but largely tangential responses. agreeable to continue/restart his medications. reports taking wellbutrin, adderall, and seroquel. Past Psychiatric History: hosps: a million SA: denies SIB: denies outpt: [facility] [place] [facility] Evaluation Reviewed: Yes PMFSH Narrative: HTN Family History: denies Social History: HS grad. working in transportation and delivery. states he has income from [facility] as well. lives with his mother. Substance History: tobacco - denies cannabis - smokes and uses CBD oil alcohol - denies cocaine - denies opioids - denies benzos - denies stimulants - h/o adderall, ritalin Rx Trauma History: denies Precis: 10/30: hold wellbutrin and adderall. increase seroquel to 150 mg QHS (from 100 mg QHS). 10/31: as for yesterday. slept well overnight. T/C adding mood stabilizer if pt does not improve soon. 11/01: no change in presentation. declining to consider mood stabilizer. 11/02: slight improvement in [facility] organization. pt declining change in mgmt, but offer lithium 450 BID. 11/03: slightly more cogent and germane today. spoke with pt's mother re case; she feels adderall and seroquel worked well for him, when he was taking them. continue current mgmt. 11/04: answers brief but linear in limited observation. declined interview with MD, citing feeling tired. increase lithium to 600 BID. 11/05: Patient notes that he is feeling ?great. He notes that he is missing his family and to be with them. He also want to return home and resume work. He denies anxiety or depression. He denies SI/HI/AH/VH. Continue current t reatment regimen. 11/06: linear, able to communicate reasonably well and be understood. feels lithium keeps my demeanor not chaotic. sleeping well. continue current mgmt. 11/07: remains improved, linear, non-bizarre in responses. continue current mgmt. check lithium level and associated labs sunday (ordered). 11/08/24: Continue to improve in mood, no safety concerns. No behavior issues. Denies side effects and was medication compliant. No issue with sleep and appetite. 11/09/24: Sleep and appetite are good, compliant with medications with no side effects. No behavior safety concerns. Continued to improve. Visible at times and attended groups. 11/10: continues organized and reasonable, asking for discharge. met with pt and pt's mother, labs reviewed. agreed to increase lithium from 600 BID to 600/750 and to discharge tomorrow. meds reviewed, reconciled, prescribed. lithium level 0.68 today. 11/11: tolerating lithium increase. safe and stable overnight. discharged as per plan. Time Spent with Patient Time attestation: Total time managing care of this patient today __35__ minutes. Discharge Plan Discharge Anticipated Discharge Date/Time: 11/11/24 11:00 Patient Disposition: Home, Self-Care Discharge Diagnosis: Bipolar I Disorder, MRE Manic Referrals: Kierra Flores ([facility]) [Other] - 11/17/24 2:00 pm Referral Note: In person appointment Royce Kiran ([facility]) [Other] - 1 Week Referral Note: Telehealth appointment [facility] [Provider Group] - 1 Week Referral Note: 11-10-24 [facility] was added to patients chart. Please call [phone] to schedule a follow up appt within 7-10 days of discharge. No release or PCP on file Discharge Medications: New lithium carbonate 300 mg Tablet Extended Release See Rx Instructions .ROUTE .COMPLEX 30 Days Qty: 90 0RF Rx Instructions: take 2 tabs (600 mg) in the morning and 1 tab (300 mg) in the evening with 450 mg tab. lithium carbonate 450 mg Tablet Extended Release 450 mg PO BEDTIME 30 Days Qty: 30 0RF quetiapine 50 mg Tablet 150 mg PO BEDTIME 30 Days Qty: 90 0RF Discontinued Adderall XR 20 mg PO DAILY bupropion HCl 100 mg PO DAILY quetiapine 100 mg PO BEDTIME Discharge Orders: Discharge Order (Routine); Ordered 11/11/24 Ordered By: Celio Mcleod Diet: Advance to usual diet Activity on Discharge: As tolerated Stand Alone Forms: Patient Portal Discharge page, Community Support Print Language: Serbian Care Plan Goals: remain safe and stable in the outpatient treatment setting Health Concerns: none Plan of Treatment: take medications as prescribed, attend appointments as scheduled Assessment: not at imminent risk of harm to self or others
[2024-11-10 20:00] VITALS: BP 123/72; PULSE 62; RESP 16; TEMP 36.9; O2SAT 98
[2024-11-11 08:00] VITALS: RESP 18
== END 2024-11-11 12:15 | disposition home or self-care (01) | DRG 753 ==
PROVIDERS: Admitting Provider Psychiatry & Neurology Psychiatry; Visit Provider Psychiatry & Neurology Psychiatry
DX: F31.2 Bipolar disorder, current episode manic severe with psychotic features (principal); R45.851 Suicidal ideations; Z79.899 Other long term (current) drug therapy
CPT/HCPCS: 36415; 80048; 80061; 80076; 80178; 82607; 82746; 83036; 84439; 84443; 85025

== ENCOUNTER → 2024-10-30 13:50 | Outpatient (BNV) | payer OTHER, SELFPAY | PROVIDERS: Admitting Provider Psychiatry & Neurology Psychiatry; Visit Provider Nurse Practitioner Family | DX: R45.851 Suicidal ideations (principal) | CPT/HCPCS: 99221 ==

== ENCOUNTER → 2024-10-30 13:50 | Outpatient (BNV) | payer OTHER, SELFPAY | PROVIDERS: Admitting Provider Psychiatry & Neurology Psychiatry; Visit Provider Psychiatry & Neurology Psychiatry | DX: F29 Unspecified psychosis not due to a substance or known physiological condition (principal) | CPT/HCPCS: 90792; 99231; 99232 ==